=== PATIENT | female | born 1975 | race Caucasian/White ===

== ENCOUNTER 2017-05-20 08:00 | Emergency (ER) | payer BC, MEDICAID, OTHER ==
[2017-05-20] MEDS ORDERED: Sodium Chloride 0.9% 10 ML Syringe FLUSH PRN (08:51)
[2017-05-20] MEDS ORDERED: cefTRIAXone 1 GM in Sodium Chloride 0.9% 50 ML IV ONE (08:51)
--- NOTE | 2017-05-20 08:55 | EDM.PDOC ---
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 Urinalysis and culture demonstrated greater than 100,000 of Escherichia coli unfortunately it was resistant to Bactrim. Sensitivity does show ceftriaxone nitroglycerin nitrophenytoin and Zosyn as well as ciprofloxacin. She states she has not had any significant back pain, generally feels ill Generalized Pain Score (Numeric/FACES): 2 - Related Data Allergies Allergy/AdvReac Type Severity Reaction Status Date / Time Penicillins Allergy Cannot Verified 10/08/14 05:51 Remember Home Meds: Home Meds Sulfamethoxazole/Trimethoprim [Sulfamethoxazole-Tmp Ds Tablet] 1 tab PO BID [History] Past Medical History Genitourinary History: Reports: Other (See Below) Other Genitourinary History: Left nephrectomy [employer]PERATOR History: Reports: - Past Surgical History HEENT Surgical History: Reports: Adenoidectomy, Tonsillectomy GI Surgical History: Reports: Cholecystectomy Female Surgical History: Reports: Section Other Female Surgeries/Procedures: DONATED LEFT KIDNEY. Social & Family History - Family History Family Medical History: Noncontributory - Tobacco Use Smoking Status *Q: Never Smoker Second Hand Smoke Exposure: No - Caffeine Use Caffeine Use: Reports: None - Alcohol Use Days Per Week of Alcohol Use: 0 - Recreational Drug Use Recreational Drug Use: No ED ROS GENERAL - Review of Systems Review Of Systems: See Below Constitutional: Reports: Fever, Chills HEENT: Reports: No Symptoms Respiratory: Reports: No Symptoms Cardiovascular: Reports: No Symptoms GI/Abdominal: Reports: No Symptoms : Reports: Dysuria, Flank Pain Musculoskeletal: Reports: No Symptoms Skin: Reports: No Symptoms ED EXAM, GI/ABD - Physical Exam Exam: See Below Exam Limited By: No Limitations General Appearance: Alert, WD/WN, No Apparent Distress Respiratory/Chest: No Respiratory Distress, Lungs Clear, Normal Breath Sounds, No Accessory Muscle Use Cardiovascular: Regular Rate, Rhythm, No Murmur GI/Abdominal Exam: Soft, Non-Tender Course - Vital Signs Last Recorded V/S: Last Vital Signs Temp 97.9 F 05/20/17 08:12 Pulse 79 05/20/17 08:12 Resp 16 05/20/17 08:12 BP 143/76 H 05/20/17 08:12 Pulse Ox 99 05/20/17 08:12 - Orders/Labs/Meds Orders: Active Orders 24 hr Category Date Time Status Peripheral IV Care [RC] . DIRECTED Care 05/20/17 08:51 Active Sodium Chloride 0.9% [Saline Flush] Med 05/20/17 08:51 Active 10 ml FLUSH ASDIRECTED PRN Peripheral IV Insertion Adult [OM.PC] Urgent Oth 05/20/17 08:51 Ordered Medication Orders Sodium Chloride (Saline Flush) 10 ml FLUSH ASDIRECTED PRN PRN Reason: Keep Vein Open Last Admin: 05/20/17 09:09 Dose: 10 ml Labs: Laboratory Tests 05/20/17 05/20/17 05/20/17 Range/Units 09:05 09:05 09:05 WBC 11.4 H (4.5-11.0) K/uL RBC 4.27 (3.30-5.50) M/uL Hgb 12.7 (12.0-15.0) g/dL Hct 37.3 (36.0-48.0) % MCV 87 (80-98) fL MCH 30 (27-31) pg MCHC 34 (32-36) % Plt Count 186 (150-400) K/uL Neut % (Auto) 66 (36-66) % Lymph % (Auto) 14 L (24-44) % [place] % (Auto) 18 H (2-6) % Eos % (Auto) 1 L (2-4) % Baso % (Auto) 0 (0-1) % Sodium 134 L (140-148) mmol/L Potassium 3.8 (3.6-5.2) mmol/L Chloride 100 (100-108) mmol/L Carbon Dioxide 22 (21-32) mmol/L Anion Gap 15.8 H (5.0-14.0) mmol/L BUN 18 (7-18) mg/dL Creatinine 1.4 H D (0.6-1.0) mg/dL Est Cr Clr Drug Dosing 53.88 mL/min Estimated GFR (MDRD) 42 L (>60) Glucose 83 (74-106) mg/dL Lactic Acid 0.8 (0.4-2.0) mmol/L Calcium 8.6 (8.5-10.1) mg/dL Total Bilirubin 0.9 (0.2-1.0) mg/dL AST 18 (15-37) U/L ALT 23 (12-78) U/L Alkaline Phosphatase 63 (46-116) U/L C-Reactive Protein 15.59 H (0.0-0.3) mg/dL Total Protein 8.6 H (6.4-8.2) g/dL Albumin 3.7 (3.4-5.0) g/dL Globulin 4.9 H (2.3-3.5) g/dL Albumin/Globulin Ratio 0.8 L (1.2-2.2) Meds: Medications Generic Name Dose Route Start Last Admin Trade Name Freq PRN Reason Stop Dose Admin Sodium Chloride 10 ml 05/20/17 08:51 05/20/17 09:09 Saline Flush FLUSH 10 ml ASDIRECTED PRN Administration Keep Vein Open Discontinued Medications Generic Name Dose Route Start Last Admin Trade Name Freq PRN Reason Stop Dose Admin Ceftriaxone Sodium 1 gm/ 50 mls @ 100 mls/hr 05/20/17 08:51 05/20/17 09:09 Sodium Chloride IV 05/20/17 09:20 100 mls/hr ONETIME ONE Administration Departure - Departure Time of Disposition: 09:47 Disposition: Home, Self-Care 01 Condition: Good Clinical Impression: UTI (urinary tract infection) Qualifiers: Urinary tract infection type: acute cystitis Hematuria presence: with hematuria Qualified Code(s): N30.01 - Acute cystitis with hematuria - Discharge Information Referrals: Marla Gunderson CNM [Primary Care Provider] - Forms: ED Department Discharge Additional Instructions: Please report to the acute care unit once a day after after 9 AM for dose of IV antibiotics, the plan is for 2 more doses after today, at that time start the oral antibiotics one tablet twice a day for 7 days, please follow-up with your primary care provider in the next 3-5 days for reevaluation - My Orders Last 24 Hours: My Active Orders 05/20/17 08:51 Peripheral IV Care [RC] . DIRECTED Sodium Chloride 0.9% [Saline Flush] 10 ml FLUSH ASDIRECTED PRN Peripheral IV Insertion Adult [OM.PC] Urgent - Assessment/Plan Last 24 Hours: My Active Orders 05/20/17 08:51 Peripheral IV Care [RC] . DIRECTED Sodium Chloride 0.9% [Saline Flush] 10 ml FLUSH ASDIRECTED PRN Peripheral IV Insertion Adult [OM.PC] Urgent Plan: Assessment Acuity = acute Site and laterality = urinary tract infection Etiology = Escherichia coli resistant to Bactrim sensitive to cephalosporins Manifestations = fevers and chills Location of injury = Home Lab values = WBC elevated 11.4 consistent leukocytosis, sodium low at 134 consistent hyponatremia creatinine elevated 1.4 consistent with chronic renal failure stage GIII a CRP elevated at 16 Plan I did review lab work with her as well as treatment options and the sensitivity results from her culture, elected to receive 1 g Rocephin IV now and for the next 2 days followed with Omnicef 300 mg by mouth twice a day 7 days, will have her follow-up with her primary care in 3-5 days for reevaluation Patient was in agreement with the plan all questions were answered, they were instructed to return to the emergency department or call for worsening symptoms. This note was dictated using [employer] voice recognition software please call with any questions.
[2017-05-20 09:23] VITALS: BP 143/76
== END 2017-05-20 09:58 | disposition home or self-care (01) ==
LOC: JP.ED 08:00
DX: N30.01 Acute cystitis with hematuria (principal); Z90.49 Acquired absence of other specified parts of digestive tract; Z98.890 Other specified postprocedural states; Z90.5 Acquired absence of kidney; Z88.0 Allergy status to penicillin
CPT/HCPCS: 36415; 80053; 83605; 85025; 86140; 96365; 99284; J0696; J7050

== ENCOUNTER 2017-07-11 13:30 | Emergency (ER) | payer BC, OTHER | END 2017-07-11 14:30 | LOC: JP.ED 13:30 | DX: Z02.89 Encounter for other administrative examinations (principal) | CPT/HCPCS: 99282 ==

== ENCOUNTER 2023-09-23 13:15 | Emergency (ER) | payer OTHER, BC ==
[2023-09-23 14:02] VITALS: BP 150/91; PULSE 68
== END 2023-09-23 14:15 | disposition home or self-care (01) ==
LOC: JP.ED 13:15
DX: S61.032A Puncture wound without foreign body of left thumb without damage to nail, initial encounter (principal); Z90.49 Acquired absence of other specified parts of digestive tract; Z88.0 Allergy status to penicillin; W46.1XXA Contact with contaminated hypodermic needle, initial encounter
CPT/HCPCS: 99283